=== PATIENT | male | born 1950 | race Caucasian/White ===

== ENCOUNTER 2019-11-02 14:53 | Observation (INO) | payer MEDICARE, MEDICAID ==
[2019-10-30 22:20] VITALS: BP 97/53
[~2019-11-02] VITALS: Ht 188 cm; Wt 76.7 kg
[2019-11-02] MEDS ORDERED: VALTREX500 MG (15:05)
[2019-11-02 15:29] LABS: BASOPHILS 0.6 % (0-2); EOSINOPHILS 3.3 % (0-7); HEMATOCRIT 25.8 % (42.0-54.0); IMMATURE GRANULOCYTES 0.1 % (0-5); LYMPHOCYTES 15.5 % (15-50); MCH 25.2 pg (26.0-34.0); MCHC 29.1 g/dL (31.0-37.0); MCV 86.6 fL (80.0-100.0); MEAN PLATELET VOLUME 8.4 fL (7.4-10.4); MONOCYTES 8.8 % (2-11); NEUTROPHILS 71.7 % (40-80); PLATELET COUNT 321 10x3/uL (130-400); RBC 2.98 10x6/uL (4.20-6.10); RDW 13.5 % (11.5-14.5); WBC 6.7 10x3/uL (4.8-10.8)
[2019-11-02 15:37] LABS: INR 1.02 (0.85-1.17); PROTIME 13.3 SECONDS (11.6-15.0)
[2019-11-02 15:39] LABS: HEMOGLOBIN 7.5 g/dL (13.5-17.5)
[2019-11-02 16:00] LABS: CALC OSMOLALITY 281 mosm/kg (275-300); CALCIUM 8.8 mg/dL (8.5-10.1); CARBON DIOXIDE 31.4 mmol/L (21.0-32.0); CHLORIDE - SERUM 103 mmol/L (98-107); CREATININE - SERUM 0.9 mg/dL (0.6-1.3); GLUCOSE 100 mg/dL (74-106); POTASSIUM - SERUM 4.2 mmol/L (3.5-5.1); SODIUM 141 mmol/L (136-145); UREA NITROGEN 16 mg/dL (7-18); eGFR NON AFRICAN AMERICAN 88 mL/min (90-120)
[2019-11-02 16:05] LABS: ALBUMIN 3.3 g/dL (3.4-5.0); ALKALINE PHOSPHATASE 107 U/L (30-120); ALT (SGPT) 12 U/L (10-68); BILIRUBIN - TOTAL 0.22 mg/dL (0.2-1.3); PROTEIN - SERUM 6.8 g/dL (6.4-8.2)
[2019-11-02 18:06] VITALS: BP 118/72
--- NOTE | 2019-11-02 19:16 | NUR ---
CHARGE NURSE NOTIFIED OF ASSESSMENT FINDINGS. DR. OSEI NOTIFIED OF BEHAVIOR AND ASSESSMENT RESULTS. PT IS A LOW RISK PER DR. OSEI. DR. OSEI STATES TO GIVE PT RESOURCES AT TIME OF DISCHARGE. NO FURTHER ORDERS AT THIS TIME. RESOURCES REVIEWED WITH PT AND HE VERBALIZED UNDERSTANDING.
[2019-11-02 20:00] VITALS: BP 133/75
[2019-11-02 22:05] VITALS: BP 108/65
--- NOTE | 2019-11-02 22:05 | NUR ---
BEGAN TRANSFUSING FIRST UNIT PRBC'S.
[2019-11-02 22:18] VITALS: BP 144/53; BMI 21.7
[2019-11-03] VITALS (7 sets, daily range): BP systolic 108–127; BP diastolic 60–70; Ht 188 cm; Wt 76.7 kg
--- NOTE | 2019-11-03 01:05 | NUR ---
BEGAN TRANSFUSING SECOND UNIT PACKED RBC'S
--- NOTE | 2019-11-03 03:06 | NUR ---
SECOND UNIT PRBC'S COMPLETE
[2019-11-03 05:22] LABS: BASOPHILS 0.3 % (0-2); EOSINOPHILS 4.2 % (0-7); HEMATOCRIT 28.6 % (42.0-54.0); HEMOGLOBIN 8.6 g/dL (13.5-17.5); IMMATURE GRANULOCYTES 0.2 % (0-5); LYMPHOCYTES 12.9 % (15-50); MCHC 30.1 g/dL (31.0-37.0); MCV 86.4 fL (80.0-100.0); MEAN PLATELET VOLUME 8.8 fL (7.4-10.4); MONOCYTES 14.4 % (2-11); PLATELET COUNT 314 10x3/uL (130-400); RBC 3.31 10x6/uL (4.20-6.10); RDW 13.6 % (11.5-14.5); WBC 6.2 10x3/uL (4.8-10.8)
[2019-11-03] MEDS ORDERED: PROTONIX40 MG PO (17:36)
[2019-11-03] MEDS ORDERED: ZOFRAN4 MG PO (17:37)
--- NOTE | 2019-11-03 19:01 | NUR ---
DISCHARGED PATIENT HOME WITH FAMILY. DISCONTINUED IV, CATHETER TIP INTACT. WENT OVER DISCHARGE INSTRUCTIONS WITH PATIENT, VERBALIZED UNDERSTANDING. DENIES ANYTHING FURTHER.
== END 2019-11-03 19:02 | disposition home or self-care (01) ==
LOC: D.ER 14:53 → D.MS 16:56 → OBSVTIME 16:56 → D.MS 17:15
PROVIDERS: Emergency Medicine; ADMIT Legal Medicine; ATTEND Legal Medicine
DX: K29.71 Gastritis, unspecified, with bleeding (principal); D64.9 Anemia, unspecified; K21.0 Gastro-esophageal reflux disease with esophagitis; K44.9 Diaphragmatic hernia without obstruction or gangrene; C44.91 Basal cell carcinoma of skin, unspecified

== ENCOUNTER 2019-11-19 06:25 | Day surgery (SDC) | payer MEDICARE, MEDICAID ==
[~2019-11-19] VITALS: Ht 190.5 cm; Wt 77.3 kg
[~2019-11-19 06:25] MED LIST: PROTONIX40 MG PO; VALTREX500 MG; ZOFRAN4 MG PO
[2019-11-19 06:52] LABS: BASOPHILS 0.4 % (0-2); EOSINOPHILS 7.5 % (0-7); HEMATOCRIT 36.7 % (42.0-54.0); HEMOGLOBIN 10.8 g/dL (13.5-17.5); IMMATURE GRANULOCYTES 0.2 % (0-5); LYMPHOCYTES 15.6 % (15-50); MCH 26.5 pg (26.0-34.0); MCHC 29.4 g/dL (31.0-37.0); MEAN PLATELET VOLUME 8.3 fL (7.4-10.4); MONOCYTES 12.6 % (2-11); NEUTROPHILS 63.7 % (40-80); PLATELET COUNT 279 10x3/uL (130-400); RBC 4.08 10x6/uL (4.20-6.10); RDW 16.1 % (11.5-14.5); WBC 5.5 10x3/uL (4.8-10.8)
[2019-11-19 06:58] LABS: CALC OSMOLALITY 279 mosm/kg (275-300); CARBON DIOXIDE 32.1 mmol/L (21.0-32.0); CHLORIDE - SERUM 101 mmol/L (98-107); GLUCOSE 110 mg/dL (74-106); POTASSIUM - SERUM 3.8 mmol/L (3.5-5.1); SODIUM 141 mmol/L (136-145); UREA NITROGEN 8 mg/dL (7-18); eGFR NON AFRICAN AMERICAN 78 mL/min (90-120)
[2019-11-19 07:12] LABS: APTT 31.1 SECONDS (22.8-39.4); PROTIME 13.2 SECONDS (11.6-15.0)
[2019-11-19 07:41] VITALS: Ht 190.5 cm; Wt 77.3 kg
--- NOTE | 2019-11-19 11:32 | NUR ---
1000- VOISE ROUNDS TO REPORT FINDINGS 1130-TRANSPORTATION HERE NOW. D/C HOME VIA WHEELCHAIR.
--- NOTE | 2019-11-21 10:07 | OP ---
PATIENT NAME: DAVID MENDES MEDICAL RECORD: [id number] :46 LOCATION:[facility] ADMISSION DATE: SURGEON: SUZI WONG DO DATE OF OPERATION: 11/19/2019 PROCEDURE: Colonoscopy with polypectomy, biopsies, and injection. INDICATIONS FOR PROCEDURE: Melena and anemia. SCOPE: [employer] video pediatric colonoscope. MEDICATIONS: Propofol 800 mg IV per anesthesia. WITHDRAWAL TIME: 28 minutes. ESTIMATED BLOOD LOSS: Minimal. COMPLICATIONS: None. FINDINGS: Informed consent was given. The patient was made comfortable with the above medication. After reaching an adequate level of sedation by slow IV push, the patient was placed in his left side. A digital rectal examination was performed and it was normal. The endoscope was advanced under direct visualization through the rectum to the cecum, confirmed by the presence of the appendiceal orifice and ileocecal valve. The endoscope was slowly withdrawn and mucosa was carefully examined. The prep quality was fair throughout the majority of the colon, but poor in the ascending colon and cecum. In the hepatic flexure, there was a mass identified, it measured approximately 5 cm. It was located at 65 cm from the anal verge. It was infiltrating and ulcerated and friable. Appearances were consistent with adenocarcinoma. Multiple cold forceps biopsies were taken. Tattoo was placed both proximally and distally to the site. In the transverse colon, there was a large mixed flat and sessile polyp, which was slightly elongated measuring approximately 1.8 cm x 7 mm. It was removed using endoscopic mucosal resection technique with injection of normal saline followed by piecemeal snare polypectomy. In the descending colon, there was a benign appearing sessile polyp, which measured approximately 4 mm in diameter. It was removed using a cold snare. There was evidence of mild diverticulosis involving the descending and sigmoid colon. Retroflexion was performed in the rectum with visualization of grade II internal hemorrhoids without active bleeding. The endoscope was withdrawn from the patient. The patient tolerated the procedure well and there were no complications. IMPRESSION: 1. Colon mass located in the hepatic flexure, status post biopsies and tattooing. 2. Two benign-appearing polyps as described above, removed using a combination of EMR technique and cold snare polypectomy. 3. Mild diverticulosis of the descending and sigmoid colon. 4. Grade II internal hemorrhoids without active bleeding. PLAN AND RECOMMENDATIONS: 1. Discharge home when recovery parameters are met. 2. Follow up biopsy specimen results. 3. High fiber diet. 4. Continue current medications. OPERATIVE REPORT [id number] DAVID MENDES 5. CT abdomen and pelvis with contrast regarding the newly diagnosed hepatic flexure mass. 6. Referral to oncology. I will discuss with the patient who his previous oncologist was and make a referral there if he wishes. 7. Referral to surgery for colon resection. 8. The patient will need a repeat colonoscopy in 1 year from the time of his resection. TRANSINT:[id number] Voice Confirmation ID: [id number] DOCUMENT ID: [id number] SUZI WONG DO at 1007 CC: [id number] DICTATION DATE: 11/19/19 0944 [employer] RAD[employer]: 11/19/19 1254 [facility] 11/19/19 [facility] [address] [place] [address]
== END 2019-11-19 11:30 | disposition home or self-care (01) ==
LOC: D.OPS 06:25
PROVIDERS: Anesthesiology; ATTEND Internal Medicine Gastroenterology
DX: K92.1 Melena (principal); D64.9 Anemia, unspecified; R10.9 Unspecified abdominal pain; C44.91 Basal cell carcinoma of skin, unspecified; K63.5 Polyp of colon

== ENCOUNTER → 2019-11-21 10:27 | Outpatient (CLI) | payer MEDICARE, MEDICAID ==
[2019-11-19 07:41] VITALS: BMI 21.2
== END | disposition home or self-care (01) ==
LOC: D.CT 10:27
PROVIDERS: ATTEND Internal Medicine Gastroenterology
DX: K76.9 Liver disease, unspecified (principal); K63.9 Disease of intestine, unspecified